=== PATIENT | female | born 1985 | race Caucasian/White ===

== ENCOUNTER 2018-09-09 18:13 | Emergency (ER) | payer MEDICAID ==
[2018-09-09 18:19] VITALS: BP 111/72
--- NOTE | 2018-09-09 18:32 | EDPHY ---
H & P Stated Complaint: R pupil dilated x ~1 hr---pt feels wnl Time Seen by Provider: 09/09/18 18:31 HPI/ROS: CHIEF COMPLAINT: Right pupil enlarged HISTORY OF PRESENT ILLNESS: The patient is a 32 y/o female arriving with her mother complaining of acute onset anisocoria about 2 hours prior to arrival. She just flew in from [place] this afternoon to visit her parents during her birthday. After arriving at their home and settling in she noticed her right "eye felt weird like maybe I had something in it." She looked in mirror and noticed large right pupil. Her vision feels "a little wonk, but clear." She has not used eye drops of any kind and the only medications she has used today were ibuprofen and a non-drowsy Dramamine pill earlier this morning. She does not use contacts or glasses and has not had an eye exam in the last year. She denies recent eye or head trauma, headache, weakness, paresthesias, confusion, or speech difficulty. She has had mild cold symptoms including rhinorrhea that are improving--no sinus drainage. She denies cough, vomiting, diarrhea, abdominal pain. She is generally healthy and has no known family history of aneurysm or or brain tumor. REVIEW OF SYSTEMS: A ten system review of systems was performed and is negative with the exception of the items mentioned in the HPI. Past medical history: Denies Past surgical history: Denies Family history: Mother has cardiac problems and underwent open heart surgery. Social history: Nonsmoker. Mother at bedside. She lives in [facility]. She works as a nanny. General Appearance: Alert. Vital signs reviewed and normal. Eyes: Right eye mydriasis, slight constriction to light, no obvious afferent pupillary defect. Left pupil normally reactive. Both pupils round. No conjunctival injection, no discharge. Anicteric. Optic discs sharp bilaterally. Visual Acuity: noted from Nurse's notes. 20/20 both eyes, 20/20 OS, 20/20 right eye, Pupils:Unequal with right pupil 5 mm, left pupil 2 mm. EOMI. Lids: no edema or swelling Skin: no proptosis, no periorbital erythema or swelling, no vesicles Conjunctivae: not injected, no discharge Cornea: exam with fluorescein not done Anterior chamber:normal, no hyphema or hypopyon ENT, Mouth: Mucous membranes are moist, no oropharyngeal erythema or edema. Neck: No lymphadenopathy, supple. Respiratory: Lungs are clear to auscultation; no wheezes, rales, or rhonchi. Cardiovascular: Regular rate and rhythm; no murmur, rub, or gallop. Gastrointestinal: Abdomen is soft and nontender, no masses or organomegaly. Skin: Warm and dry, no rashes on exposed skin, normal color. No facial rash or vesicles. Neurological: Alert and oriented. Moving all four extremities easily and equally. Cranial nerves II through XII are examined and are intact with the exception of anisocoria. Strength is 5 over 5 bilaterally with testing of all major motor groups. Sensation is intact to light touch over all 4 extremities. Deep tendon reflexes are 2+ in the biceps and knees bilaterally. Gait is normal. [id number] is performed accurately. Psychiatric: Normal affect. - Personal History LMP (Females 10-55): 1-7 Days Ago - Medical/Surgical History Hx Asthma: No Hx Chronic Respiratory Disease: No Hx Diabetes: No Hx Cardiac Disease: No Hx Renal Disease: No Hx Cirrhosis: No Hx Alcoholism: No Hx HIV/AIDS: No Hx Splenectomy or Spleen Trauma: No Other PMH: denies - Social History Smoking Status: Never smoked Constitutional: Initial Vital Signs Temperature (C) 36 C 09/09/18 18:17 Heart Rate 61 09/09/18 18:17 Respiratory Rate 16 09/09/18 18:17 Blood Pressure 111/72 09/09/18 18:17 O2 Sat (%) 100 09/09/18 18:17 O2 Delivery Mode Room Air Allergies/Adverse Reactions: No Known Allergies Allergy (Unverified 09/09/18 18:15) Home Medications: Medication Instructions Recorded NK [No Known Home Meds] 09/09/18 Medical Decision Making - Diagnostics Imaging: Discussed imaging studies w/ call center director Radiologist, I viewed and interpreted images myself ED Course/Re-evaluation: 32 y/o female presents with a 2-hour history of anisocoria noticed shortly after arriving in [place] from [place]. She did use oral non-drowsy Dramamine earlier today. She has a 5mm dilated right pupil with sluggish and incomplete constriction. Her neurologic exam is otherwise nonfocal. Visual acuity is normal. Plan for head CT to rule out acute intracranial process such as tumor or aneurysm. Head CT: negative 1957: Consulted with Dr. Fermin, ophthalmology. He tells me he already consulted on this patient when [place] [facility] [place] today with the same symptoms. In the absence of other neurologic symptoms and with a normal head CT, he says if she held the Dramamine with her hand then rubbed her eye she could develop mydriasis like this. He reports this should resolve within 12 hours and that the size of her pupil has already decreased compared to when he consulted earlier today. Reassessed patient and discussed findings and recommendations. It was her understanding that Urgent Care would call the emergency department to let them know that she had been seen there, therefore she did not mention that visit to me. She will be discharged with instructions to follow up with ophthalmology if symptoms do not resolve by morning. Return precautions discussed. She is comfortable with this plan. Differential Diagnosis: I considered a differential diagnosis that includes but is not limited to brain tumor, aneurysm, eye trauma, Adie's tonic pupil, chemical mydriasis, 3rd cranial nerve palsy. Departure - Departure Disposition: Home, Routine, Self-Care Clinical Impression: Anisocoria Condition: Good Instructions: Additional Information Additional Instructions: If your pupil is not close to normal tomorrow morning when you wake up you should call Dr. Fermin is office after a 30 in the morning. He will see you in his office if you're pupil has not returned to normal. If you have any neurologic changes tonight you should be reexamined immediately--headache, seizure, confusion, change in vision, new weakness, new numbness, trouble with speech. Referrals: German Linda MD [Medical Doctor] - As per Instructions Luis Fermin MD [Medical Doctor] - As per Instructions Report Scribed for: Lisa Nichols Report Scribed by: Charla Baldwin Date of Report: 09/09/18 Time of Report: 19:12 Physician Review and Approval Statement: 09/09/18 18:32 Portions of this note were transcribed by the medical representative. I, Dr. Lisa Nichols, personally performed the history, physical exam, and medical decision- making; and confirmed the accuracy of the information in the transcribed note.
== END 2018-09-09 20:14 | disposition home or self-care (01) ==
DX: H57.02 Anisocoria (principal)